=== PATIENT | male | born 1960 | race Caucasian/White ===

== ENCOUNTER 2020-09-15 08:23 | Day surgery (SDC) | payer MEDICARE, BC ==
[2020-09-08 15:13] LABS: PARTIAL THROMBOPLASTIN TIME 34 SECONDS (22-32)
[2020-09-08 15:16] LABS: BASOPHILS # (AUTO) 0.1 X10'3 (0-0.2); EOSINOPHILS # (AUTO) 0.1 X10'3 (0-0.9); LYMPHOCYTES # (AUTO) 1.2 X10'3 (1.1-4.8); MONOCYTES # (AUTO) 0.7 X10'3 (0-0.9); PLATELET COUNT 215 X10'3 (140-440)
[2020-09-08 15:18] LABS: EOSINOPHILS % (AUTO) 2.3 % (0-6); HEMATOCRIT 37.1 % (42.0-52.0); HEMOGLOBIN 12.4 g/dl (14.0-17.9); LYMPHOCYTES % (AUTO) 23.2 % (21-51); MEAN CORPUSCULAR HEMOGLOBIN 27.6 PG (27.0-31.0); MEAN CORPUSCULAR HGB CONC 33.4 g/dL (33.0-36.5); MEAN CORPUSCULAR VOLUME 82.6 FL (78-98); MEAN PLATELET VOLUME 9.8 FL (7.4-10.4); MONOCYTES % (AUTO) 13.2 % (2-12); NEUTROPHILS # (AUTO) 3.1 X10'3 (1.8-7.7); NEUTROPHILS % (AUTO) 59.3 % (42-75); RED BLOOD COUNT 4.49 X10'6 (4.70-6.10); WHITE BLOOD COUNT 5.2 X10'3 (4.5-11.0)
[2020-09-08 15:20] LABS: ALANINE AMINOTRANSFERASE 30 U/L (12-78); ALBUMIN 3.8 G/DL (3.4-5.0); ALKALINE PHOSPHATASE 123 IU/L (46-116); ANION GAP 8 (8-16); ASPARTATE AMINO TRANSFERASE 29 U/L (10-37); BILIRUBIN,TOTAL 0.4 MG/DL (0.1-1.0); BLOOD UREA NITROGEN 8 MG/DL (7-18); BUN/CREATININE RATIO 7.7 (5.4-32.0); CALCIUM 8.4 MG/DL (8.5-10.1); CHLORIDE 104 MMOL/L (99-107); CREATININE 1.04 MG/DL (0.60-1.10); GLUCOSE 110 MG/DL (70-104); POTASSIUM 3.5 MMOL/L (3.5-5.1); SODIUM 143 MMOL/L (135-145); TOTAL CARBON DIOXIDE 31.1 MMOL/L (24-32); TOTAL PROTEIN 7.5 G/DL (6.4-8.2); eGFR 72 ML/MIN
[~2020-09-15] VITALS: Ht 200.7 cm; Wt 122.9 kg
[~2020-09-15 08:23] MED LIST: ACET-812 PO; ATOR10TA70 PO; BACL20TA PO; BUPIVAcaine/PF 2.5 mg/ml (0.25%) 30ml vial ONE; DULO-31 PO; FAMO40TA7 PO; LIDOcaine 0.5% (5mg/ml) 50ml vial ONE; LISI1TAB51 PO; MONT10TA26 PO; OMEG1CAP45 PO; OMEP20TA5 PO; PREDNISOLONE LEFTEYE; PREG150C PO; RIVA20TA PO; SEMA7TAB PO; SITA1TBM7 PO; TRAM50TA2 PO; ceFAZolin inj. 3,000 MG in normal saline 100ml IV soln 100 ML IV ONE; famotidine 10mg tablet PO ONE; ringers solution, lacted 1,000 ML IV SCH
[2020-09-15 08:45] VITALS: BP 134/94
[2020-09-15] MEDS ORDERED: meperidine/PF 25mg/ml syringe IV PRN ×3 (09:50)
[2020-09-15] MEDS ORDERED: ringers solution, lacted 1,000 ML IV SCH (09:50)
[2020-09-15] MEDS ORDERED: morphine 2 MG/ML inj. syringe IV PRN (09:50)
[2020-09-15] MEDS ORDERED: morphine 4 MG/ML inj SYRINge IV PRN (09:50)
[2020-09-15] MEDS ORDERED: proCHLORperazine 10 MG/2 ml inj IV PRN (09:50)
[2020-09-15] MEDS ORDERED: ondansetron/PF 4mg/2ml inj IV PRN (09:50)
[2020-09-15] MEDS ORDERED: fentaNYL/PF 50MCG/1 ML 2ML syringe ONE (11:55)
[2020-09-15] MEDS ORDERED: MIDAZolam 5mg/5ml vial ONE (11:56)
[2020-09-15 12:36] VITALS: BP 142/96
--- NOTE | 2020-09-15 12:36 | NUR ---
[facility] by Anesthesiologist Trevor and report given by Anesthesiolgist. VSS, pt responsive to questions. 20G right forearm LR IVF 100cc/hr. Left elbow and wrist wrapped including beny wraps. Ice pack applied with pillow for elevation.
[2020-09-15 12:40] VITALS: BP 142/97
[2020-09-15 12:50] VITALS: BP 139/104
[2020-09-15 13:00] VITALS: BP 150/106
[2020-09-15 13:10] VITALS: BP 140/99
--- NOTE | 2020-09-15 13:26 | NUR ---
PATIENT AND FAMILY AND THEY HAVE VERBALIZED UNDERSTANDING, OPPORTUNITY TO ASK QUESTIONS GIVEN AND PATIENT COMFORTABLE WITH DC. IV TAKEN OUT WITHOUT COMPLICATION. PATIENT HAS MET ALL DC CRITERIA FOR DC HOME. I HAVE REVIEWED D/C INSTRUCTIONS WITH OUT VIA WHEELCHAIR WHERE PATIENT WAS TAKEN HOME WITH ALL BELONGINGS. FAMILY GAVE PATIENT TRANSPORT HOME. PT TO CAN SEALER PAIN MED SCRIPT FROM PHARMACY.
== END 2020-09-15 13:26 | disposition home or self-care (01) ==
LOC: PAS 08:23
PROVIDERS: ATTEND Orthopaedic Surgery Hand Surgery
DX: G56.02 Carpal tunnel syndrome, left upper limb (principal); G56.22 Lesion of ulnar nerve, left upper limb; M24.041 Loose body in right finger joint(s); M18.0 Bilateral primary osteoarthritis of first carpometacarpal joints; J45.909 Unspecified asthma, uncomplicated; F32.9 Major depressive disorder, single episode, unspecified; I10 Essential (primary) hypertension; G47.30 Sleep apnea, unspecified; E11.9 Type 2 diabetes mellitus without complications; K21.9 Gastro-esophageal reflux disease without esophagitis; E66.9 Obesity, unspecified; Z68.30 Body mass index [BMI] 30.0-30.9, adult; Z86.711 Personal history of pulmonary embolism; M19.032 Primary osteoarthritis, left wrist; Z79.01 Long term (current) use of anticoagulants; Z79.899 Other long term (current) drug therapy; Z20.828 Contact with and (suspected) exposure to other viral communicable diseases; Z98.890 Other specified postprocedural states; Z98.52 Vasectomy status; Z72.89 Other problems related to lifestyle; Z98.41 Cataract extraction status, right eye; Z98.42 Cataract extraction status, left eye; Z98.1 Arthrodesis status; Z96.659 Presence of unspecified artificial knee joint
CPT/HCPCS: 26070; 36415; 64718; 64721; 80053; 82948; 85025; 85610; 85730; 87635; 93005; A6222; J0690; J2001; J2250; J3010; J3490; A4215; A4615; A6449; J7120

== ENCOUNTER 2021-01-02 07:12 | Day surgery (SDC) | payer MEDICARE, BC ==
[2020-12-29 15:38] LABS: PRE OP INR 1.1 INR; PRE OP PROTIME 11.4 SECONDS (9.0-12.0)
[2020-12-29 15:40] LABS: BASOPHILS # (AUTO) 0.1 X10'3 (0-0.2); EOSINOPHILS # (AUTO) 0.1 X10'3 (0-0.9); MONOCYTES # (AUTO) 0.4 X10'3 (0-0.9); NEUTROPHILS # (AUTO) 1.6 X10'3 (1.8-7.7)
[2020-12-29 15:41] LABS: ALBUMIN 3.9 G/DL (3.4-5.0); ALKALINE PHOSPHATASE 148 IU/L (46-116); BLOOD UREA NITROGEN 9 MG/DL (7-18); BUN/CREATININE RATIO 10.3 (5.4-32.0); CALCIUM 8.7 MG/DL (8.5-10.1); CHLORIDE 105 MMOL/L (99-107); CREATININE 0.87 MG/DL (0.60-1.10); PRE OP ALT 30 U/L (30-65); PRE OP ANION GAP 8 (8-16); PRE OP AST 21 U/L (10-37); PRE OP BILIRUB, TOTAL 0.4 MG/DL (0.0-1.0); PRE OP GLUCOSE 133 MG/DL (70-104); PRE OP POTASSIUM 3.6 MMOL/L (3.4-5.1); PRE OP SODIUM 142 MMOL/L (135-145); TOTAL PROTEIN 7.9 G/DL (6.4-8.2); eGFR 89 ML/MIN
[2020-12-29 15:42] LABS: BASOPHILS % (AUTO) 2.5 % (0-1); EOSINOPHILS % (AUTO) 1.8 % (0-6); LYMPHOCYTES # (AUTO) 1.5 X10'3 (1.1-4.8); LYMPHOCYTES % (AUTO) 41.6 % (21-51); MEAN CORPUSCULAR HEMOGLOBIN 26.5 PG (27.0-31.0); MEAN CORPUSCULAR HGB CONC 32.6 g/dL (33.0-36.5); MEAN CORPUSCULAR VOLUME 81.5 FL (78-98); MONOCYTES % (AUTO) 10.4 % (2-12); NEUTROPHILS % (AUTO) 43.7 % (42-75); PRE OP HEMOGLOBIN 12.4 g/dL (14.0-17.9); PRE OP PLATELET COUNT 203 X10'3 (140-440); RED BLOOD COUNT 4.67 X10'6 (4.70-6.10); RED CELL DISTRIBUTION WIDTH 13.9 % (11.5-14.5)
[2021-01-02] VITALS (13 sets, daily range): BP systolic 152–183; BP diastolic 97–115
[~2021-01-02] VITALS: Ht 200.7 cm; Wt 109.9 kg
[~2021-01-02 07:12] MED LIST changes: -BUPIVAcaine/PF 2.5 mg/ml (0.25%) 30ml vial ONE; -LIDOcaine 0.5% (5mg/ml) 50ml vial ONE; -MONT10TA26 PO; +MONT10TA97 PO; -PREDNISOLONE LEFTEYE; -SITA1TBM7 PO; +ceFAZolin 2gm in dextrose, iso 50 ML IV ONE; -ceFAZolin inj. 3,000 MG in normal saline 100ml IV soln 100 ML IV ONE; -famotidine 10mg tablet PO ONE; +famotidine 20mg tablet PO ONE
[2021-01-02] MEDS ORDERED: LIDOcaine 1% 30ml preserv. free vial ONE (08:10)
[2021-01-02] MEDS ORDERED: BUPIVAcaine/PF 2.5mg/ml (0.25%) 10ml vial ONE ×2 (08:51→10:44)
[2021-01-02] MEDS ORDERED: fentaNYL/PF 50MCG/1 ML 2ML syringe ONE (10:50)
[2021-01-02] MEDS ORDERED: MIDAZolam 5mg/5ml vial ONE (10:50)
[2021-01-02] MEDS ORDERED: BUPIVAcaine/PF 2.5mg/ml (0.25%) 10ml vial IJ ONE (11:40)
[2021-01-02] MEDS ORDERED: ketorolac trometh. 30mg/ml inj. ONE (11:42)
--- NOTE | 2021-01-02 12:05 | NUR ---
LEFT UE HAS DAMIEN WRAP ON LEFT ELBOW AND SPLINT WITH DAMIEN ON LEFT WRIST. CLEAN AND DRY.
--- NOTE | 2021-01-02 12:05 | NUR ---
Received from OR via , accompanied by Anesthesiologist DR KING and report given by Anesthesiolgist. PT IS SLEEPY BUT WAKES TO VOICE, SKIN WARM AND PINK, LEFT HAND/FINGERS PINK, WARM AND ABLE TO WIGGLE, SOMEWHAT HYPERTENSIVE BUT NO ORDERS RECEIVED FROM DR KING, PT RESTING, NO C/O PAIN.
--- NOTE | 2021-01-02 12:07 | NUR ---
PT CALLED WITH AN ANGRY TONE TO VOICE HER DISAPPROVAL THAT SHE HAS NOT HEARD FROM DR RODRIGUEZ AND WAS NOT CALLED THAT HE HAD ARRIVED IN THE RECOVERY ROOM AND WANTED TO KNOW WHAT WAS DONE IN THE OR. I INFORMED HER THAT HER HAD JUST ARRIVED IN TO THE RECOVERY ROOM LESS THAN [address] RODRIGUEZ IS CURRENTLY IN ANOTHER CASE AND NOT ABLE TO TALK TO HER. I ASSURED HER THAT I WILL LET DR RODRIGUEZ KNOW SHE WANTS A PHONE CALL TO UPDATE HER REGARDING WHAT WAS DONE IN THE OR.
[2021-01-02] MEDS ORDERED: ringers solution, lacted 1,000 ML IV SCH (13:05)
[2021-01-02] MEDS ORDERED: morphine 2 MG/ML inj. syringe IV PRN (13:05)
[2021-01-02] MEDS ORDERED: ondansetron/PF 4mg/2ml inj IV PRN (13:05)
[2021-01-02] MEDS ORDERED: proCHLORperazine 10 MG/2 ml inj IV PRN (13:05)
[2021-01-02] MEDS ORDERED: morphine 4 MG/ML inj SYRINge IV PRN (13:05)
[2021-01-02] MEDS ORDERED: meperidine/PF 25mg/ml syringe IV PRN ×3 (13:05)
--- NOTE | 2021-01-02 13:16 | NUR ---
HAVE BEEN IN CONTACT WITH DR KING REGARDING CONTINUED BP. DR KING CAME TO SEE PT AND TOLD HIM TO TAKE HIS HOME BP MED UPON DISCHARGE. PT HAS MILD LOW BACK PAIN. MORPHINE ORDERED BY DR KING AND GIVEN. CALLED TO UPDATE. NO ANSWER. LEFT .
--- NOTE | 2021-01-02 14:45 | NUR ---
PT MEETS DISCHARGE CRITERIA, IV REMOVED, JANINA FLUIDS, PAIN MINIMAL, UP WITH STEADY GAIT, DISCHARGE INSTRUCTIONS REVIEWED WITH PT AND HE VERBALIZES UNDERSTANDING. ALSO EXPLAINED DC INSTRUCTIONS OVER THE PHONE TO THE , PT WEARING GLASSES, NO OTHER VALUABLES, TRANSPORTED TO VEHICLE VIA W/C WITH VOLUNTEER. DR RODRIGUEZ WAS ABLE TO CONTACT AND UPDATED HER ON THE SURGICAL PROCEDURE AND ANSWER HER QUESTIONS.
== END 2021-01-02 13:45 | disposition home or self-care (01) ==
LOC: PAS 07:12
PROVIDERS: ATTEND Orthopaedic Surgery Hand Surgery
DX: G56.22 Lesion of ulnar nerve, left upper limb (principal); M19.032 Primary osteoarthritis, left wrist; M18.12 Unilateral primary osteoarthritis of first carpometacarpal joint, left hand; Z72.0 Tobacco use; G56.02 Carpal tunnel syndrome, left upper limb; K21.9 Gastro-esophageal reflux disease without esophagitis; F32.9 Major depressive disorder, single episode, unspecified; E11.9 Type 2 diabetes mellitus without complications; G47.30 Sleep apnea, unspecified; Z20.822 Contact with and (suspected) exposure to COVID-19; Z98.890 Other specified postprocedural states
CPT/HCPCS: 36415; 64718; 64719; 80053; 82948; 85025; 85610; 85730; A6222; J1885; J2001; J2250; J2270; J3010; J3490; J7120; A4215; A4618; A6446; A6449